=== PATIENT | female | born 1935 | race Caucasian/White ===

== ENCOUNTER 2022-09-29 06:32 | Day surgery (SDC) | payer MEDICARE, BC, SELFPAY ==
[2022-09-29] MEDS: BUPIVACAINE 0.5% 30 ML INJECTION (06:50)
[2022-09-29 06:55] VITALS: BP 145/71; PULSE 70; RESP 16; TEMP 36.4; O2SAT 95
[2022-09-29] MEDS: ETHYL CHLORIDE 1 APPLICATION 1 APPLIC TOPICAL (07:12)
[2022-09-29 07:30] VITALS: BP 151/67; PULSE 62; RESP 14; O2SAT 98
[2022-09-29 07:35] VITALS: BP 164/77; PULSE 61; RESP 14; O2SAT 98
--- NOTE | 2022-09-29 07:39 | P.ORPRC_ITS ---
Procedure Note Date of procedure: 09/29/22 Procedure: PREOPERATIVE DIAGNOSIS: 1. Left ring finger flexor tenosynovitis - trigger finger POSTOPERATIVE DIAGNOSIS: 1. Left ring finger flexor tenosynovitis - trigger finger PROCEDURE: 1. Left ring finger flexor tendon sheath open release (A1 justin) SURGEON: Johnie Kelley MD. TALENT ACQUISITION ADMINISTRATOR: Asa Rodríguez PA-C ANESTHESIA: Local anesthetic 4ml via 50:50 mixture of 1 Lidocaine with epi and 0.5% marcaine plain EBL: 2ml IMPLANTS: None TOURNIQUET: None COMPLICATIONS: None evident INDICATIONS: The patient is a pleasant 87-year-old female who has experienced left ring finger catching/triggering for number of months. It has progressively gotten worse. Given the failure of nonoperative management, and how this affects daily life, surgery was recommended. DESCRIPTION OF PROCEDURE: Following a thorough discussion of risks, benefits, and alternatives consent was obtained and the operative digit(s) was marked. The patient was brought to the operating room and placed supine on the operating table. Local anesthesia induction was undertaken in preop holding. No antibiotics were administered as this was planned to be a local case only. Proper time-out was performed identifying proper patient, site, and procedure. The operative extremity was prepped and draped in the appropriate sterile fashion using ChloraPrep. A incision was made on the palmar surface of the hand overlying the MCP joint region of the appropriate digit(s) respecting the palmar creases being cautious not to cross these perpendicularly. Sharp incision through the skin, and blunt dissection through subcutaneous tissue allowing protection of crossing neurologic structures. The A1 justin was visualized directly. It was incised sharply with a 15 blade. It was released completely from its distal to proximal extent under direct visualization. The tendon was inspected and found to be mildly striated consistent with some friction. Otherwise, it was intact. The tendon was removed out of the wound, and further inspected. The patient was asked to manually flex and extend the digits and showed no further catching. The catching which was visualized after tourniquet inflation, was no longer evident with reproduction of a manual fist and relaxation. Closure was performed with 4-O nylon in interrupted fashion. Soft dressings were applied, and the patient was transferred to the recovery room in stable condition. PLAN: 1. Encourage elevation of the operative extremity. 2. Range of motion and icing of the fingers and hand/wrist as tolerated/needed. 3. Ibuprofen/acetaminophen and/or Percocet as needed for pain control. 4. Follow up with PA visit in 12-16 days for wound check and suture removal.
[2022-09-29 07:41] VITALS: BP 151/72; PULSE 57; RESP 14; O2SAT 98
[2022-09-29] MEDS: NEOMYCIN/BACITRACIN/POLYMYXIN B 1 APPLIC TOPICAL (07:43)
[2022-09-29 07:50] VITALS: BP 160/64; PULSE 50; RESP 16; TEMP 36.3; O2SAT 98
== END 2022-09-29 08:25 | disposition home or self-care (01) ==
PROVIDERS: PCP Family Medicine; Visit Provider Orthopaedic Surgery Sports Medicine
PROC: (CPT 26055; principal; 2022-09-29 07:30)
DX: M65.342 Trigger finger, left ring finger (principal); M65.842 Other synovitis and tenosynovitis, left hand
CPT/HCPCS: 26055; J3490

== ENCOUNTER 2023-05-19 14:13 | Outpatient (RCR) | payer MEDICARE, BC, SELFPAY | END 2023-09-16 23:59 | disposition home or self-care (01) | PROVIDERS: PCP Family Medicine; Visit Provider Orthopaedic Surgery Sports Medicine | DX: M16.12 Unilateral primary osteoarthritis, left hip (principal); Z96.642 Presence of left artificial hip joint; Z51.89 Encounter for other specified aftercare | CPT/HCPCS: 97161 ==

== ENCOUNTER 2023-05-25 09:04 | Day surgery (SDC) | payer MEDICARE, BC, SELFPAY ==
[2023-05-25] VITALS (23 sets, daily range): BP systolic 104–146; BP diastolic 48–94; PULSE 48–102; RESP 15–18; TEMP 35.8–36.8; O2SAT 94–100; BMI 28.7
[2023-05-25] MEDS: CELECOXIB 200 MG CAPSULE PO ×2 (09:54→21:01)
[2023-05-25] MEDS: ACETAMINOPHEN 500 MG TABLET 1000 MG PO ×2 (09:54→18:21)
[2023-05-25] MEDS: LACTATED RINGERS 1000 ML 1,000 ML 100 ML IV ×2 (10:10→12:13)
[2023-05-25] MEDS: SODIUM CHLORIDE 0.9 % (FLUSH) 10 ML SYRINGE IVF (10:10)
--- NOTE | 2023-05-25 10:22 | CRLHL7_ITS ---
For Patients: As a result of the Cures Act, medical imaging exams and procedure reports are released immediately into your electronic medical record. You may view this report before your referring provider. If you have questions, please contact your health care provider. INDICATION: Follow up a new left hip arthroplasty. TECHNIQUE: AP portable view of the lower pelvis and cross table lateral view of the left hip. FINDINGS: Left hip arthroplasty. The components are adequately aligned and well seated. Air within the soft tissues and joint space related to the surgery. Older right hip arthroplasty. IMPRESSION: Postsurgical change from a left total hip arthroplasty. The components are adequately aligned and well seated. Dictated by Gerard Lira MD @ 05/25/2023 3:24:10 PM (Electronically Signed)
--- NOTE | 2023-05-25 10:48 | SUR.PREOP ---
TIME?OUT:?1101 PT/RN/MDA?VERIFICATION?OF?SURGICAL?SITE,?PROCEDURE,?AND?CONSENT OBTAINED?PRIOR?TO?INVASIVE?PROCEDURE.
[2023-05-25] MEDS: MIDAZOLAM HCL 1 MG/ML inj IVP (11:01)
[2023-05-25] MEDS: fentaNYL 100 MCG/2 ML inj IVP (11:01)
[2023-05-25] MEDS: CEFAZOLIN 2 GM in 0.9 % SODIUM CHLORIDE Mini-bag 100 ML IVPB (11:26)
[2023-05-25] MEDS: TRANEXAMIC ACID 100 MG/ML INJ 1000 MG IV (11:30)
--- NOTE | 2023-05-25 11:30 | CRLHL7_ITS ---
For Patients: As a result of the Century Cures Act, medical imaging exams and procedure reports are released immediately into your electronic medical record. You may view this report before your referring provider. If you have questions, please contact your health care provider. INDICATION: Left hip arthroplasty. Follow up. TECHNIQUE: Fluoroscopic guided intraoperative evaluation of the left hip. FINDINGS: 30.7 seconds fluoroscopy time utilized intraoperatively. A single spot image demonstrates a left hip arthroplasty. IMPRESSION: Left hip arthroplasty. 38.7 seconds fluoroscopy time utilized intraoperatively. Dictated by Gerard Lira MD @ 05/26/2023 8:32:24 AM (Electronically Signed)
--- NOTE | 2023-05-25 11:34 | W.PM.NB ---
Nerve Block Nerve Block Time Seen by Provider: 11:05 Date Seen: 05/25/23 Type of block requested by surgeon for post-operative analgesia: ALLIE/LFCN Side: left Time out performed: Yes Verification of patient name: Yes Verification of date of : Yes Site marking: site marked Name of person performing procedure: [place] Continuous monitoring Was continuous monitoring of O2 sat, B/P, quality assurance monitor body, recorded every 15 minutes?: Yes Procedure Checklist: sterile prep, needles and gloves Ultrasound guided. Images saved: Yes Medications given in 5ml increments after negative aspiration: Ropivicaine %: 0.5 mL: 30 Needle gauge: 20 Decadron (mg): 10 Precedex (mcg): 25 Patient tolerated procedure well: Yes Additional comments: Needle noted below psoas tendon needle noted adjacent to LFCN Block Charges Block Charge (with Pro Fee): Other Periph Nerve Block Use of Ultrasound Machine for Block: Yes- US Guidance/pain block
--- NOTE | 2023-05-25 11:35 | W.ANESCHARGE ---
Anesthesia Charges Start Date/Time Anesthesia Start Date: 05/25/23 Anesthesia Start Time: 11:16 Stop Date/Time Anesthesia Stop Date: 05/25/23 Anesthesia Stop Time: 14:41 Summary Extremes of Age - Over 70 or under 1: MDA
--- NOTE | 2023-05-25 13:46 | P.ORPRC_ITS ---
Procedure Note Date of procedure: 05/25/23 Procedure: PREOPERATIVE DIAGNOSIS: 1. Left hip osteoarthritis, severe, primary POSTOPERATIVE DIAGNOSIS: 1. Left hip osteoarthritis, severe, primary PROCEDURE: 1. Left total hip arthroplasty-anterior approach, cemented our femoral component a 2. [id number] - intraoperative fluoroscopy up to 1 hour. SURGEON: Johnie Kelley MD. ELEVATOR SERVICEMAN: Asa Mukherjee; KRIS Jack - Of note, a skilled assistant professor in family studies was critical for this case to aid in patient positioning, tissue retraction, limb manipulation/positioning, dislocation/relocation, patient safety, and closure. ANESTHESIA: Spinal anesthetic EBL: 300 mL IMPLANTS: DePuy J[employer]J uncemented total hip [place] cup size 50, hole eliminator, +0 neutral liner [place] cemented stem, standard offset, size 2 with the associated centralizer and small femoral canal restrictor; +5 mm ceramic 32mm head. Super cable (x1) for questionable calcar split COMPLICATIONS: Small calcar questionable split was seen intraoperatively when preparing the femur. Decision was made to place calcar cable to support this bone. INDICATIONS: The patient is a pleasant 88-year-old female who has experienced severe left hip pain and difficulty bearing weight. Workup included x-rays which revealed severe osteoarthrosis in the hip. Given the deformity, the dysfunction, and the pain, as well as the failure of nonoperative management, recommendation was made for surgery. FINDINGS: Full-thickness chondral loss throughout the femoral head broadly. Acetabulum also showed significant chondral loss. Moderate effusion upon entering the joint. DESCRIPTION OF PROCEDURE: Following a thorough discussion of risks, benefits, and alternatives consent was obtained and the left hip was marked. The patient was brought to the operating room and placed supine on the operating table. Induction of anesthesia was undertaken. 1 g IV Ancef and 1 g tranexamic acid was administered within 1 hr of incision preoperatively. Proper time-out was performed identifying proper patient, site, procedure. The operative extremity was prepped and draped in the appropriate sterile fashion using ChloraPrep after the patient was positioned on the [place] table with head in neutral alignment and all bony prominences well padded. C-arm fluoroscopic imaging was utilized to confirm proper pelvis rotation and position, and to get true AP films of both the contralateral left, and the affected left hip. This is for comparison. A longitudinal incision was made starting approximately 1 cm distal to the ASIS, and 3-4 cm lateral. The incision was extended distally aiming toward the lateral border the patella. Sharp incision through skin and bovie cautery through the subcutaneous tissue allowed identification of the TFL fascia. This was sharply divided, and the fascia bluntly released from the muscle fibers as we dissected medial. Upon coming to the medial border, we were able to retract the TFL laterally, and penetrated the deeper fascia and identify the crossing circumflex vessels. These were ligated/cauterized. The rectus was elevated from the capsule, and retractors placed laterally and medially along the femoral neck to help with visualization of the capsule. We then performed an inverted T capsulotomy. The capsule was tagged for later repair. Retractors were placed inside the capsule. The femoral neck was visualized after releasing medially down to the lesser trochanter, along the saddle laterally, and up onto the acetabulum. The femoral neck cut was made in line with our preoperative templating. The head was removed in a single piece, and sized. We turned our attention to acetabular preparation. Initially, the labrum was resected from around the perimeter, the pulvinar was excised, allowing us to visualize the false wall. We started the reaming with a 43 mm reamer. This was medialized down to the true wall. We then enlarged our reamers sequentially up to one size less than the selected cup size. We trialed at the same size and found it to have an excellent fit. The selected cup was then opened, inserted, and impacted in line with the goal of 40-45? of abduction, and 20-25? of anteversion. This was confirmed on C-arm fluoroscopic imaging to be in the monserrat ropriate/goal position. Once the cup was placed we placed a hole eliminator and a liner consistent with preop planning. Attention was turned to the femoral preparation. The limb was extended, externa lly rotated, and adducted. The posteromedial capsule was released, as retractors were placed allowing excellent access to the proximal femur. Initially a music box mechanic was followed by canal finder followed by various broaches. We broached sequentially up to size noted above, found it to have excellent rotational control, and trialing various heads and necks, revealed that appropriate neck offset, and the above noted head size provided the greatest stability, and yarsani of length, and offset. C-arm fluoroscopic imaging confirmed position of the stem, as well as leg lengths, which were comp ared with the pre procedure all fluoroscopic images. Of note, during femoral preparation a small possible, questionable calcar split was visualized. So as not to have this turned to something that might propagate, a decision made to place a super cable around the calcar. This was passed, cables passed through the mechanism and engaged. This was tensioned to the high level and secured. Thereafter, excellent control on the femur was maintained. The femur was prepared for cementing and cement mixed on back table. After thorough irrigation, including of the femoral canal, cement was filled, pressurized, and the stem placed until cement had completely cured. After 1 last trial to confirm leg lengths and offset, the real head was opened and inserted. After reducing, the leg was placed through range of motion and stability was confirmed anterior, posterior, and lateral. A 3 min Betadine soak was then performed, and thorough irrigation with normal saline followed. Closure of the capsule was performed with #1 PDS. Bleeding was confirmed to be controlled at this stage, and the TFL fascia was closed with #0 strata fix. Subcutaneous, and subcuticular closure was performed with 2-0 Vicryl and 4-0 Monocryl, respectively. Dressings were applied, and the patient was awoken from anesthesia and transferred the PACU in stable condition. A skilled assistant professor in family studies was critical for this case to aid in patient positioning, tissue retraction, proximal femur exposure, limb manipulation/positioning, dislocation/relocation, patient safety, and closure. PLAN: 1. Weight bear as tolerated operative extremity. 2. 23 hr perioperative antibiotics. 3. Ice. 4. PT/OT consults for ambulation assistance/mobility education. 5. Social work consult for discharge planning. 6. DVT prophylaxis with at SCDs, Wallace Jorgee, and Xarelto x5 days followed by aspirin for a total of 1 month..
--- NOTE | 2023-05-25 14:45 | P.ANES_ITS ---
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
[2023-05-25] MEDS: LACTATED RINGERS 1000 ML 1,000 ML 75 ML IV (15:47)
[2023-05-25] MEDS: CEFAZOLIN 1 GM in 0.9 % SODIUM CHLORIDE Mini-bag 100 ML IVPB (18:22)
--- NOTE | 2023-05-25 18:35 | P.IMCN_ITS ---
Date of Consult Patient: Other Consult date: 05/25/23 Requesting Physician: Orthopedics Primary Care Provider: Severino Durham MD Consult Narrative Reason for consult: Assist with postop medical management Narrative: Clarissa Dey is a 88 year old woman with symptomatic severe left Coxarthrosis, who undergoes elective left total hip arthroplasty today, without any co mplications. Estimated blood loss 300 mL. History of right total hip arthroplasty, right total knee arthroplasty, left total knee arthroplasty. Did well with these. Review of Systems Status of ROS: Reports: 10 or more systems reviewed and unremarkable except as noted in History and below [facility] Medical History Spondyloarthropathy ?M47.819 - Spondylosis without myelopathy or radiculopathy, site unspecified (ICD-10) Insomnia ?G47.00 - Insomnia, unspecified (ICD-10) Bilateral artificial lens implant ?Z96.1 - Presence of intraocular lens (ICD-10) Congestive heart failure ?I50.9 - Heart failure, unspecified (ICD-10) Osteoporosis ?M81.0 - Age-related osteoporosis without current pathological fracture (ICD- 10) Surgical History (Updated 05/25/23 @ 18:35 by Hank Gloria MD) S/P trigger finger release (09/29/22) ?Z98.890 - Other specified postprocedural states (ICD-10) 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) ?Z96.651 - Presence of right artificial knee joint (ICD-10) History of total left 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) ?Z96.652 - Presence of left artificial knee joint (ICD-10) History of total right hip replacement ?Z96.641 - Presence of right artificial hip joint (ICD-10) Family History (Updated 05/25/23 @ 18:32 by Hank Gloria MD) Mother Liver cancer Colon cancer Father Colon cancer CHF (congestive heart failure) Social History Smoking Status: Never smoker Do you use any of these nicotine containing products: None Second hand tobacco smoke exposure: No How often do you have a drink containing alcohol: 4 or more times a week Alcohol type: wine How many standard drinks containing alcohol do you have on a typical day: 1 or 2 How often do you have six or more drinks on one occasion: Never AUDIT-C Alcohol total score: 4 Non-prescribed substance use: denies use Caffeine: No Meds Home Medications and Allergies Home Medications Medication Instructions Recorded Confirmed Type trazodone 50 mg tablet 50 mg PO HS 09/24/22 05/25/23 History vitamin C 90 mg-zinc gluconate 15 1 latisha PO DAILY 09/24/22 05/25/23 History mg-herbal complex no. 325 lozenges (Elderberry Zinc Vit C) acetaminophen 650 mg 650 mg PO Q8H 04/14/23 05/25/23 History tablet,extended release coenzyme Q10 100 mg capsule (Co 100 mg PO QDAY 04/14/23 05/25/23 History Q-10) [id number] C-Mn 2 cap PO QDAY 04/14/23 05/25/23 History capsule Allergies Allergy/AdvReac Type Severity Reaction Status Date / Time bee venom protein (honey bee) Allergy Verified 05/25/23 09:40 Carbapenems Allergy Verified 05/25/23 09:40 Cephalosporins Allergy Verified 05/25/23 09:40 Penicillins Allergy Verified 05/25/23 09:40 prilocaine Allergy Verified 05/25/23 09:40 procaine Allergy Verified 05/25/23 09:40 Sulfa (Sulfonamide Allergy Verified 05/25/23 09:40 Antibiotics) vitamin E (d-alpha Allergy Verified 05/25/23 09:40 tocopherol) Exam Narrative: Exam Narrative: Examined patient in her bed on the medical surgical floor postoperatively. She appears comfortable in no acute distress. Vision and hearing are grossly normal. Alert and oriented to self, place, time, situation. Friendly, articulate, cooperative. Mood and affect are congruent. Neck is supple. No JVD or hepatojugular reflux. Heart tones with regular rhythm. Occasional pause noted. Soft systolic murmur. No gallop or rub. Lungs are clear to auscultation. Fine end inspiratory rales bibasilarly. No wheezing or rhonchi. Abdomen with active bowel sounds, soft, nontender. Moves all 4 extremities. No focal motor neurologic deficits. No lower extremity edema. Const: Vital Signs, click to edit/add: Vital Signs - 24 hr 05/25/23 09:52 05/25/23 11:02 05/25/23 11:05 Temperature 98.1 F Pulse Rate 68 56 L 63 Pulse Rate [Left P ulse Oximeter] Respiratory Rate 16 16 16 Blood Pressure 122/74 144/52 H 146/58 H Blood Pressure [Le ft Arm] Pulse Oximetry 98 99 99 Oxygen Delivery Me thod 05/25/23 14:37 05/25/23 14:40 05/25/23 14:45 Temperature 97.4 F L Pulse Rate 71 68 67 Pulse Rate [Left P ulse Oximeter] Respiratory Rate 15 16 16 Blood Pressure 118/60 116/72 115/91 H Blood Pressure [Le ft Arm] Pulse Oximetry 95 95 95 Oxygen Delivery Me od Room Air 05/25/23 14:50 05/25/23 14:55 05/25/23 15:00 Temperature Pulse Rate 69 69 61 Pulse Rate [Left P ulse Oximeter] Respiratory Rate 18 16 16 Blood Pressure 132/59 L 139/62 118/94 H Blood Pressure [Le ft Arm] Pulse Oximetry 95 98 [facility] 05/25/23 15:05 05/25/23 15:10 05/25/23 15:20 Temperature 97 F L 96.4 F L Pulse Rate 58 L 55 L 51 L Pulse Rate [Left P ulse Oximeter] Respiratory Rate 18 18 18 Blood Pressure 136/75 136/58 L Blood Pressure [Le ft Arm] 139/68 Pulse Oximetry 98 97 Oxygen Delivery [facility] Room Air Room Air 05/25/23 15:20 05/25/23 15:35 05/25/23 15:50 Temperature 96.4 F L 96.5 F L 97.6 F Pulse Rate 51 L Pulse Rate [Left P ulse Oximeter] 54 L 50 L Respiratory Rate 18 16 16 Blood Pressure Blood Pressure [Le ft Arm] 139/68 121/68 127/67 Pulse Oximetry 98 [facility] Room Air Room Air 05/25/23 16:05 05/25/23 16:20 05/25/23 16:50 Temperature 98.2 F 98.2 F 97.0 F L Pulse Rate Pulse Rate [Left P ulse Oximeter] 48 L 50 L 52 L Respiratory Rate 16 16 16 Blood Pressure Blood Pressure [Le ft Arm] 132/59 L 110/57 L 116/49 L Pulse Oximetry Oxygen Delivery Me thod Room Air Room Air Room Air Documenting provider has reviewed patient's vital signs: yes Assessment and Plan Assessment and plan (1) Osteoarthritis of left hip: Problem comment: Severe, [id number] Status: Acute (2) Status post left hip replacement: Status: Acute Plan 1. Reviewed impression with patient. 2. Answered her questions. 3. Continue with trazodone at bedtime. 4. Agree with perioperative antibiotic prophylaxis. 5. Agree with postoperative venous thromboembolism prophylaxis. 6. I have completed the medical discharge for this patient. Medically she may be discharged when Orthopedic surgery deems her ready to be discharged. 7. Will be available to assist Orthopedic surgery while patient is in the hospital. 8. Patient agreeable with above stated plans and recommendations.
--- NOTE | 2023-05-25 19:23 | PC.NURSE ---
VS on RA, A& Ox3. Left Hip dressing CDI w/ no drainage, ice to op site. TEDs and plexipulses on BLE. Encouraged to cough and use incentive spirometer. Educated on proper movement to get out of bed. A x1 w/ gait belt and RW 1x to the BR no void yet. Minimal reports of 2/10 pain while in bed, more pain with activity. Pt is hesitant to take oxy because she is worried about constipation, I educated on priority to stay on top of pain and how senna/miralax will help prevent constipation. Tolerating PO liquids and food w/ no reports of nausea. Scheduled tylenol and abx given.
[2023-05-26] MEDS: ACETAMINOPHEN 500 MG TABLET 1000 MG PO ×2 (00:18→05:56)
[2023-05-26] MEDS: CEFAZOLIN 1 GM in 0.9 % SODIUM CHLORIDE Mini-bag 100 ML IVPB (02:32)
[2023-05-26 03:07] VITALS: BP 107/50; RESP 16; TEMP 36.9; O2SAT 98
--- NOTE | 2023-05-26 07:23 | PC.NURSE ---
[id number]: Patient had an uneventful night. Patient pain controlled with scheduled tyl. Patient SBA with ambulation, gait belt and walker. Patient SL. Patient denies n/v. Patient AAOx4. Patient req oxygen prn during night. Patient able to verbalize needs.
[2023-05-26 07:44] LABS: Basophils Percent Auto 0.1 % (0.0-3.0); Hematocrit 29.4 % (33.0-51.0); Hemoglobin* 9.8 gm/dL (12.0-16.0); Immature Granulocytes Pct Auto 0.2 %; Lymphocytes Percent Auto 10.9 % (20-44); Mean Corpuscular HGB Conc 33 gm/dL (32-36); Mean Corpuscular Hemoglobin 31 pg (26-34); Mean Corpuscular Volume 94 fL (80-100); Neutrophils Percent Auto 82.8 % (42.0-72.0); Platelet Count* 240 K/uL (140-440); Red Blood Count 3.13 m/uL (4.00-5.20); White Blood Count* 12.13 K/uL (4.50-11.00)
[2023-05-26 07:51] LABS: Slide Review Reflex No
[2023-05-26 07:59] LABS: Sodium* 135 mmol/L (135-149)
--- NOTE | 2023-05-26 08:01 | PM.ORPN ---
Subjective Subjective Date Seen: 05/26/23 Principal diagnosis: Status postop day 1, left total hip arthroplasty - anterior approach Interval history: Patient reports doing well. No acute events over night. Reports that she continues to work on deep breathing to keep the alarm on the vital machine from going off. Pain managed with scheduled and PRN medications, ice. DVT prophylaxis: Rivaroxaban, bilateral knee high Wallace stockings, SCDs, walking. Denies fevers, chills, aches, N/V, CP, SOB/SIERRA, or lightheadedness. Ortho Exam Narrative Exam Narrative: -Patient appears comfortable in bed, eating breakfast; no apparent acute distress -Alert and oriented times 3 -Operative hip swollen; soft tissues supple; no obvious erythema. Ecchymosis minimal. Warmth appropriate. Tender to touch left lateral thigh -Surgical dressing clean, dry, intact; no obvious drainage, no erythematous streaking peripheral to the bandage -Bilateral calves soft and supple; no significant swelling, edema, tenderness, erythema, discoloration, warmth, or palpable cords -2+ DP/PT pulses, intact dermatomes and myotomes distally (5/5 strength). No numbness about the lateral femoral cutaneous nerve distribution. Const Vital Signs, click to edit/add: Vital Signs - 24 hr 05/25/23 09:52 05/25/23 11:02 05/25/23 11:05 Temperature 98.1 F Pulse Rate 68 56 L 63 Pulse Rate [Left Pulse Oximeter] Respiratory Rate 16 16 16 Blood Pressure 122/74 144/52 H 146/58 H Blood Pressure [Left Arm] Pulse Oximetry 98 99 99 Oxygen Delivery Method Oxygen Flow Rate 05/25/23 14:37 05/25/23 14:40 05/25/23 14:45 Temperature 97.4 F L Pulse Rate 71 68 67 Pulse Rate [Left Pulse Oximeter] Respiratory Rate 15 16 16 Blood Pressure 118/60 116/72 115/91 H Blood Pressure [Left Arm] Pulse Oximetry 95 95 95 Oxygen Delivery Method Room Air Oxygen Flow Rate 05/25/23 14:50 05/25/23 14:55 05/25/23 15:00 Temperature Pulse Rate 69 69 61 Pulse Rate [Left Pulse Oximeter] Respiratory Rate 18 16 16 Blood Pressure 132/59 L 139/62 118/94 H Blood Pressure [Left Arm] Pulse Oximetry 95 98 100 Oxygen Delivery Method Room Air Oxygen Flow Rate 05/25/23 15:05 05/25/23 15:10 05/25/23 15:20 Temperature 97 F L 96.4 F L Pulse Rate 58 L 55 L 51 L Pulse Rate [Left Pulse Oximeter] Respiratory Rate 18 18 18 Blood Pressure 136/75 136/58 L Blood Pressure [Left Arm] 139/68 Pulse Oximetry 98 97 Oxygen Delivery Method Room Air Room Air Oxygen Flow Rate 05/25/23 15:20 05/25/23 15:35 05/25/23 15:50 Temperature 96.4 F L 96.5 F L 97.6 F Pulse Rate 51 L Pulse Rate [Left Pulse Oximeter] 54 L 50 L Respiratory Rate 18 16 16 Blood Pressure Blood Pressure [Left Arm] 139/68 121/68 127/67 Pulse Oximetry 98 Oxygen Delivery Method Room Air Room Air Room Air Oxygen Flow Rate 05/25/23 16:05 05/25/23 16:20 05/25/23 16:50 Temperature 98.2 F 98.2 F 97.0 F L Pulse Rate Pulse Rate [Left Pulse Oximeter] 48 L 50 L 52 L Respiratory Rate 16 16 16 Blood Pressure Blood Pressure [Left Arm] 132/59 L 110/57 L 116/49 L Pulse Oximetry Oxygen Delivery Method Room Air Room Air Room Air Oxygen Flow Rate 05/25/23 17:20 05/25/23 18:20 05/25/23 19:20 Temperature 97.2 F L 97.3 F L 98.1 F Pulse Rate Pulse Rate [Left Pulse Oximeter] 94 102 H 81 Respiratory Rate 16 16 16 Blood Pressure Blood Pressure [Left Arm] 113/51 L 104/55 L 130/52 L Pulse Oximetry 94 94 Oxygen Delivery Method Room Air Room Air Room Air Oxygen Flow Rate 05/25/23 20:20 05/25/23 21:20 05/25/23 23:46 Temperature 98.2 F 98.2 F 97.3 F L Pulse Rate Pulse Rate [Left Pulse Oximeter] 81 65 Respiratory Rate 16 16 16 Blood Pressure Blood Pressure [Left Arm] 115/50 L 106/48 L 111/57 L Pulse Oximetry 94 98 98 Oxygen Delivery Method Room Air Nasal Cannula Nasal Cannula Oxygen Flow Rate 2 2 05/26/23 03:07 Temperature 98.4 F Pulse Rate Pulse Rate [Left Pulse Oximeter] Respiratory Rate 16 Blood Pressure Blood Pressure [Left Arm] 107/50 L Pulse Oximetry 98 Oxygen Delivery Method Room Air Oxygen Flow Rate 0 Assessment and Plan Assessment and plan (1) Osteoarthritis of left hip: Problem details: Severe, [id number] Status: Acute (2) Status post left hip replacement: Problem details: POD 1 left total hip arthroplasty - anterior approach Status: Acute Plan - Complete 23 hour perioperative antibiotics. - PT/OT consult for education and assistance. - Social work consult for discharge planning - Prescribed analgesics as needed - DVT prophylaxis: Rivaroxaban, bilateral knee high Wallace Hose stockings and SCDs - Anticipation is for discharge to home with son and daughter today, 05/26/2023, if the patient remains medically stable, pain is controlled, and they are safe with mobilization. Patient's daughter daughter will be staying with her for a few days.
[2023-05-26 08:02] LABS: Blood Urea Nitrogen* 20 mg/dL (7-30); Creatinine* 0.6 mg/dL (0.5-1.5); Est. Creatinine Clearance* 29.01; Estimated Glomerular Filt Rate 87 ml/min
[2023-05-26 08:08] VITALS: BP 134/91; PULSE 52; RESP 16; TEMP 36.8; O2SAT 98
[2023-05-26] MEDS: SENNOSIDES 1 TAB TABLET 2 TAB PO (08:33)
[2023-05-26] MEDS: CELECOXIB 200 MG CAPSULE PO (08:34)
[2023-05-26] MEDS: RIVAROXABAN 10 MG TABLET PO (08:34)
--- NOTE | 2023-05-26 15:52 | PC.SOCIAL ---
per therapy, pt is moving well. Pt will have assistance at home with pt's spouse. No identified social work needs.
== END 2023-05-26 11:35 | disposition home or self-care (01) ==
LOC: OR 09:05 → MEDSURG 09:11
PROVIDERS: PCP Family Medicine; Visit Provider Orthopaedic Surgery Sports Medicine
PROC: (CPT 27130; principal; 2023-05-25 11:30)
DX: M16.12 Unilateral primary osteoarthritis, left hip (principal); G89.18 Other acute postprocedural pain
CPT/HCPCS: 27130; 01214; 36415; 64450; 73501; 76942; 82565; 84132; 84295; 84520; 85025; 86850; 86900; 86901; 97110; 97116; 97161; 97165; 99100; A9270; C1776; J0690; J1100; J2250; J2371; J2405; J2704; J2795; J3010; J7120

== ENCOUNTER 2024-02-13 08:29 | Day surgery (SDC) | payer MEDICARE, BC, SELFPAY ==
[2024-02-13] VITALS (8 sets, daily range): BP systolic 120–147; BP diastolic 60–79; PULSE 65–73; RESP 16; TEMP 36.6–36.8; O2SAT 95–99; BMI 28.3
[2024-02-13] MEDS: BUPIVACAINE 0.5% 30 ML INJECTION (08:50)
--- NOTE | 2024-02-13 09:38 | SUR.PREOP ---
SAME DAY SURGERY LOCAL INJECTION SITE VERIFICATION WAS PERFORMED BY SURGEON/PA AND PATIENT PRIOR TO LOCAL ANESTHETIC BEING INJECTED TO OPERATIVE SITE.
[2024-02-13] MEDS: ETHYL CHLORIDE 1 APPLICATION 1 APPLIC TOPICAL (09:39)
--- NOTE | 2024-02-13 10:29 | P.ORPRC_ITS ---
Procedure Note Date of procedure: 02/13/24 Procedure: PREOPERATIVE DIAGNOSIS: 1. Right index and ring fingers flexor tenosynovitis - trigger finger POSTOPERATIVE DIAGNOSIS: 1. Right index and ring finger flexor tenosynovitis - trigger finger PROCEDURE: 1. Right index and ring finger flexor tendon sheath open release (A1 justin) SURGEON: Johnie Kelley MD. RN DERMATOLOGY: Asa Rodríguez PA-C ANESTHESIA: Local anesthetic 6ml total divided between the 2 digits even the via 50:50 mixture of 2 % Lidocaine with epi and 0.5% marcaine plain EBL: 2mL IMPLANTS: None TOURNIQUET: None COMPLICATIONS: None evident INDICATIONS: The patient is a pleasant 88-year-old female who has experienced right index and ring finger catching/triggering for number of months. It has progressively gotten worse. Given the failure of nonoperative management, and how this affects daily life, surgery was recommended. DESCRIPTION OF PROCEDURE: Following a thorough discussion of risks, benefits, and alternatives consent was obtained and the operative digit(s) was marked. The patient was brought to the operating room and placed supine on the operating table. Local anesthesia induction was undertaken in preop holding. No antibiotics were administered as this was planned to be a local case only. Proper time-out was performed identifying proper patient, site, and procedure. The operative extremity was prepped and draped in the appropriate sterile fas hion using ChloraPrep. An incision was made on the palmar surface of the hand overlying the MCP joint region of the appropriate digit(s) respecting the palmar creases being cautious not to cross these perpendicularly. Sharp incision through the skin, and blunt dissection through subcutaneous tissue allowing protection of crossing neurologic structures. The A1 justin was visualized directly. It was incised sharply with a 15 blade. It was released completely from its distal to proximal extent under direct visualization. The tendon was inspected and found to be mildly striated consistent with some friction. Otherwise, it was intact. The tendon was removed out of the wound, and further inspected. The patient was asked to manually flex and extend the digits and showed no further catching. The catching, which was visualized initially, was no longer evident with reproduction of a manual fist and relaxation. Closure was performed with 4-O nylon in interrupted fashion. Soft dressings were applied, and the patient was transferred to the recovery room in stable condition. PLAN: 1. Encourage elevation of the operative extremity. 2. Range of motion of the fingers and hand/wrist as tolerated. 3. Ibuprofen/acetaminophen and/or oxycodone as needed for pain control. 4. Follow up with PA visit in 12-16 days for wound check and suture removal.
== END 2024-02-13 11:11 | disposition home or self-care (01) ==
PROVIDERS: PCP Family Medicine; Visit Provider Orthopaedic Surgery Sports Medicine
PROC: (CPT 26055; principal; 2024-02-13 09:00)
DX: M65.321 Trigger finger, right index finger (principal); M65.341 Trigger finger, right ring finger; M65.841 Other synovitis and tenosynovitis, right hand
CPT/HCPCS: 26055 ×2; J0665

== ENCOUNTER 2024-08-20 13:01 | Outpatient (CLI) | payer MEDICARE, BC, SELFPAY | END 2024-08-20 13:02 | disposition home or self-care (01) | LOC: AMB 08-25 07:52 | PROVIDERS: PCP Family Medicine; Visit Provider Family Medicine | DX: M79.605 Pain in left leg (principal) | CPT/HCPCS: A0425; A0427 ==

== ENCOUNTER 2024-08-20 13:52 | Emergency (ER) | payer MEDICARE, BC, SELFPAY ==
[2024-08-20 13:53] VITALS: BP 128/110; PULSE 65; RESP 18; TEMP 36.6; O2SAT 98; BMI 27.7
--- NOTE | 2024-08-20 14:23 | ED.LOWEXIN ---
HPI - Extremity Injury (Lower) General Time Seen by Provider: 14:23 Date Seen: 08/20/24 Chief Complaint: Extremity Pain/Injury, Lower Stated Complaint: Leg pain Time Seen by Provider: 08/20/24 14:13 Source: patient, RN notes reviewed and old records reviewed Mode of arrival: ambulatory Limitations: no limitations History of Present Illness HPI Narrative: Mrs. Dey is a very pleasant 89-year-old well-spoken woman who presents via [facility] for evaluation regarding left leg pain and difficulty with weight-bearing. Patient awoke this morning with pain from her knee cap into her left hip anterior groin. It was so bad that she had a hard time getting out of bed but she it ventrally did that. She notes that she uses walking sticks and try to do that and tried to ?walk it off?. This did not help. She also took her left leg and brought it close to her chest in extreme hip flexion thinking that maybe something was caught or needed to be stretched. These movements did not increase her pain but certainly did not relieve her pain. She notes that she has chronic numbness in her anterior thigh from her hip replacement. Patient notes that she has a history of a left hip replacement and during that time it had been noted that she had a femur fracture and thus a band was placed around her femur. She notes that this cause significant discomfort and sensitized the nerves. This caused persistent pain and electrical shock-like feeling throughout her leg. She notes that she underwent therapy at [facility] in [place] and this significantly helped although the numbness persists. Patient states the pain that she is experiencing today is completely different from what high have just described. She notes no recent falls or trauma. She notes that she had recently been in [place] on a car trip. She tried to get in to see her physical therapist in [place] but there were no appointments available here. She arrives by EMS. Patient denies fever chills vomiting nausea abdominal pain loss of bowel or bladder control. She does note that when she was feeling her leg she seemed to have increasing firmness on the inner aspect of her left lower calf. Related Data Home Medications ?Medication ?Instructions ?Recorded ?Confirmed trazodone 50 mg tablet 50 mg PO HS 09/24/22 08/20/24 Allergies Allergy/AdvReac Type Severity Reaction Status Date / Time bee venom protein (honey bee) Allergy Verified 08/20/24 17:33 Carbapenems Allergy Verified 08/20/24 17:33 Cephalosporins Allergy Verified 08/20/24 17:33 Penicillins Allergy Verified 08/20/24 17:33 prilocaine Allergy Verified 08/20/24 17:33 procaine Allergy Verified 08/20/24 17:33 Sulfa (Sulfonamide Allergy Verified 08/20/24 17:33 Antibiotics) vitamin E (d-alpha Allergy Verified 08/20/24 17:33 tocopherol) Review of Systems Status of ROS: Reports: 10 or more systems reviewed and unremarkable except as noted in History and below Narrative: Pain increases in the left hip with coughing. Const: Denies: fever or chills Eyes: Denies: change in vision ENMT: Denies: throat pain, neck pain, nasal discharge or nasal congestion Cardio: Denies: chest pain, palpitations, swelling of feet/ankles, lightheadedness or shortness of breath with exertion Resp: Reports: cough (Occasional); Denies: shortness of breath GI: Denies: abdominal pain, nausea or vomiting : Denies: painful urination Musculo: Denies: neck pain PFSH PFSH Medical History Spondyloarthropathy ?M47.819 - Spondylosis without myelopathy or radiculopathy, site unspecified (ICD-10) Insomnia ?G47.00 - Insomnia, unspecified (ICD-10) Bilateral artificial lens implant ?Z96.1 - Presence of intraocular lens (ICD-10) Congestive heart failure ?I50.9 - Heart failure, unspecified (ICD-10) Osteoporosis ?M81.0 - Age-related osteoporosis without current pathological fracture (ICD-10) Surgical History (Updated 02/27/24 @ 11:36 by Chelsey Ponce ~ [employer], [employer] [facility]) Status post left hip replacement (05/25/23) ?Z96.642 - Presence of left artificial hip joint (ICD-10) S/P trigger finger release (09/29/22) ?Z98.890 - Other specified postprocedural states (ICD-10) 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) ?Z96.651 - Presence of right artificial knee joint (ICD-10) History of total left 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) ?Z96.652 - Presence of left artificial knee joint (ICD-10) History of total right hip replacement ?Z96.641 - Presence of right artificial hip joint (ICD-10) Family History (Updated 05/25/23 @ 18:32 by Hank Gloria MD) Mother Liver cancer Colon cancer Father Colon cancer CHF (congestive heart failure) Social History (Reviewed 06/16/23 @ 13:00 by Merry Arce ~ [facility]) Smoking Status: Never smoker Do you use any of these nicotine containing products: None Second hand tobacco smoke exposure: No How often do you have a drink containing alcohol: 4 or more times a week Alcohol type: wine How many standard drinks containing alcohol do you have on a typical day: 1 or 2 How often do you have six or more drinks on one occasion: Never AUDIT-C Alcohol total score: 4 Non-prescribed substance use: denies use Caffeine: No Exam Narrative: Exam Narrative: Clarissa is alert and oriented. She is for very precise in detailed in her explanations. She is with a GCS of 15 and mentating normally. External ears eyes nose clear. Heart with regular rate and rhythm and lungs are clear. Abdomen is soft there is no tenderness noted. No pulsating masses noted I do not note any unusual hernias or bulging. Examination of her lower extremity show no evidence of lesions or rash. She has no palpable tenderness along the anterior lateral or medial thigh. She demonstrates full hip flexion without difficulty. Distally sensation and motor is intact. No erythema of the lower extremities or calf tenderness with palpation. Const: Vital Signs, click to edit/add: Vital Signs - 24 hr 08/20/24 13:53 08/20/24 15:49 08/20/24 16:46 Temperature 97.9 F 97.9 F Pulse Rate [Pulse Oximeter] 65 57 L 55 L Respiratory Rate 18 16 16 Blood Pressure [Le ft Upper Arm] 128/110 H 148/72 H Pulse Oximetry 98 98 97 Oxygen Delivery Me thod Room Air Room Air Room Air Documenting provider has reviewed patient's vital signs: yes Course Course ED Course: Differential diagnosis includes but is not limited to radiculopathy, shingles, occult pelvic fracture, internal hernia or aneurysm, DVT. At this time will start with ultrasound of the left lower extremity as well as x-rays of the pelvis left hip left femur and left knee. Patient declines any blood work at this time. Reevaluation(s) Reevaluation #1: X-rays and ultrasound reassuring. I spoke with Clarissa about other etiologies which are very unlikely but possible as I am not able to explain this pain. I am suggesting an abdominal and pelvic CT with contrast to ensure that there is no evidence of aneurysm or hernia that could possibly be causing this leg pain. She is receptive to this. Will also check a CBC, comprehensive panel, CRP. Urinalysis. Reevaluation #2: Did speak to patient about her use of Tylenol in taking 3 extra-strength tablets at 1 time which is exceeds the recommended single dose of 1000 mg. Reevaluation #3: Abdominal CT without any Bryan some findings to explain leg pain. Vital Signs Vital signs: Initial Vital Signs Temperature 97.9 F 08/20/24 13:53 Temperature Source Temporal Artery Scan 08/20/24 13:53 Pulse Rate 65 08/20/24 13:53 Respiratory Rate 18 08/20/24 13:53 Blood Pressure 128/110 H 08/20/24 13:53 Blood Pressure Mean 116 H 08/20/24 13:53 Blood Pressure Position Supine 08/20/24 13:53 Pulse Oximetry 98 08/20/24 13:53 Oxygen Delivery Method Room Air 08/20/24 13:53 Vital Signs Temperature 97.9 F 08/20/24 13:53 Pulse Rate 65 08/20/24 13:53 Respiratory Rate 18 08/20/24 13:53 Blood Pressure 128/110 H 08/20/24 13:53 Pulse Oximetry 98 08/20/24 13:53 Oxygen Delivery Method Room Air 08/20/24 13:53 Temperature 97.9 F 08/20/24 16:46 Pulse Rate 55 L 08/20/24 18:45 Respiratory Rate 16 08/20/24 18:45 Blood Pressure 140/82 H 08/20/24 18:45 Pulse Oximetry 97 08/20/24 18:45 Oxygen Delivery Method Room Air 08/20/24 18:45 MDM - Extremity Injury (Lower) MDM Narrative Medical decision making narrative: 1. Left leg pain -unknown etiology. There is some slight narrowing at L2 but this does not appear to be radicular as it is encompassing the entire left quad. Paper ill patient is able to straighten and extend at the knee. X-rays reassuring as was abdominal CT with no underlying evidence of a hernia or aneurysm. At this time patient wants to go home and feel she is safe to do so. She tells me that she has lots of people at her place of living that look after her. Plan is to have her follow-up with her physical therapists tomorrow. If she has ongoing issues suggest orthopedic consult. Laboratory values reassuring no evidence of UTI but will send for urine culture. CRP within normal limits and no evidence of leukocytosis. Did specifically discuss possible appearance of shingles and she would need to seek medical attention if this occurred. She assures me she recently had her shingles vaccination 2. History of left hip repair -repair appears to be without any changes. 3. Disposition -home at this time. Patient feels safe going home. Recommend she keep her appointment with physical therapy but if she is worsening have her return to the emergency room. She is in agreement with this plan. Medical Records Attestation: I reviewed the patient's medical records. Lab Data Attestation: I reviewed the patient's lab results. Labs: Lab Results 08/20/24 08/20/24 Range/Units 16:30 16:40 WBC 8.52 (4.50-11.00) K/uL RBC 4.04 (4.00-5.20) m/uL Hgb 12.2 (12.0-16.0) gm/dL Hct 37.1 (33.0-51.0) % MCV 92 (80-100) fL MCH 30 (26-34) pg MCHC 33 (32-36) gm/dL RDW Coeff of Jaspreet 12.8 (11.5-15.5) % Plt Count 300 (140-440) K/uL Neut % (Auto) 60.3 (42.0-72.0) % Lymph % (Auto) 31.0 (20-44) % [place] % (Auto) 7.2 (0.0-11.0) % Eos % (Auto) 0.9 (0.0-7.0) % Baso % (Auto) 0.5 (0.0-3.0) % Neut # (Auto) 5.14 (1.7-7.0) K/uL Lymph # (Auto) 2.64 (0.90-2.90) K/uL [place] # (Auto) 0.60 (0.00-0.90) K/UL Eos # (Auto) 0.08 (0.00-0.50) K/uL Baso # (Auto) 0.04 (0.00-0.30) K/uL Abs Immat Gran (auto) 0.01 (0.00-0.30) K/uL Imm/Tot Granulo (auto) 0.1 % Sodium 137 (135-149) mmol/L Potassium 3.9 (3.6-5.1) mmol/L Chloride 103 (96-114) mmol/L Carbon Dioxide 28 (20-32) mmol/L Anion Gap 6 L (7-15) mEq/L BUN 19 (7-30) mg/dL Creatinine 0.6 (0.5-1.5) mg/dL Estimated Creat Clear 29.91 Estimated GFR 87 ml/min Glucose 89 (60-115) mg/dL Calcium 9.5 (8.4-10.6) mg/dL Total Bilirubin 0.3 (0.1-1.5) mg/dL AST 22 (12-35) U/L ALT 11 (4-35) U/L Alkaline Phosphatase 65 (40-150) U/L C-Reactive Protein < 0.5 L (0.5-1.0) mg/dL Total Protein 7.1 (6.0-8.3) g/dL Albumin 4.3 (3.3-5.0) g/dL Urine Color Yellow (Yellow) Urine Appearance Clear (Clear) Urine pH 7.0 (5.0-8.5) Ur Specific Aneta 1.015 (1.000-1.030) Urine Protein Negative (Negative) Urine Glucose (UA) Negative (Negative) Urine Ketones Negative (Negative) Urine Blood Negative (Negative) Urine Nitrite Positive A (Negative) Urine Bilirubin Negative (Negative) Urine Urobilinogen 0.2 (0.2-1.0) Ur Leukocyte Esterase Trace A (Negative) Urine RBC 0-2 (0-2) Urine WBC 2-5 (0-5) Ur Squamous Epith Cells Few (None-Few) Urine Bacteria Many A (None) Urine Starch Few A (None) POC Creatinine 0.6 (0.6-1.3) mg/dl Imaging Data Venous US: Attestation: I have reviewed the pertinent imaging results. Radiologist's impression: Sonographic imaging demonstrates the left common femoral, deep femoral, superficial femoral, popliteal, posterior tibial and greater saphenous and the contralateral right common femoral veins to be fully compressible with normal color Doppler blood flow. IMPRESSION: Normal left lower extremity venous ultrasound, no sign of deep venous thrombosis. Pelvis x-ray: Attestation: I have reviewed the pertinent imaging results. My impression: I do not note any acute fracture Radiologist's impression: Bones: Alignment is normal. Redemonstrated bilateral total hip arthroplasties. No evident hardware complications. No evident fractures or bone lesions. Soft tissues: Unremarkable. Impression: No evident acute abnormalities. Left hip and femur x-ray: Attestation: I have reviewed the pertinent imaging results. Radiologist's impression: [place] [address] Diagnostic Imaging Report Patient: Clarissa Dey MR#: [id number] : 1935 Acct:[id number] Loc: ED Service Date: 08/20/[address]: Ordering Physician: Tena Oquendo M.D. Date of Service: 08/20/24 Procedure(s): XR femur LT 2V Accession Number(s): [id number] cc: Severino Durham M.D.; Tena Oquendo M.D.~ For Patients: As a result of the Cures Act, medical imaging exams and procedure reports are released immediately into your electronic medical record. You may view this report before your referring provider. If you have questions, please contact your health care provider. 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 Hardware appears intact without evident complication. No evident acute fracture or dislocation. No evident acute soft tissue abnormality. Left knee x-ray: Attestation: I have reviewed the pertinent imaging results. CT scan - abdomen: Attestation: I have reviewed the pertinent imaging results. Radiologist's impression: FINDINGS: Lower chest: Unremarkable. Liver: Left hepatic lobe cystic focus. Innumerable other hepatic subcentimeter hypodensities are small to characterize but may also reflect cysts. Gallbladder and bile ducts: Cholelithiasis without evidence of acute cholecystitis. Pancreas: Unremarkable. No mass or inflammation. Spleen: Unremarkable. Normal in size. No masses. Adrenal glands: Unremarkable. No nodules. Kidneys: Unremarkable. No suspicious masses, stones, or hydronephrosis. GI tract: Mild colonic diverticulosis without evidence of acute diverticulitis. Normal appendix. Vasculature: Abdominal aorta is normal in caliber. Mesenteric arteries are patent. Lymph nodes: No lymphadenopathy. Peritoneum/Abdominal Wall: Unremarkable. No sign of mass or infiltration. No free air or significant free fluid. Pelvis: Evaluation of the pelvis is limited due to artifact from bilateral total hip arthroplasty hardware, but there are no evident acute abnormalities. Bones: Evaluation of the bilateral total hip arthroplasty hardware is limited due to hardware associated artifact, but there are no evident acute abnormalities. 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 At L1-2, there is a partially calcified disc herniation that results in at least mild spinal canal stenosis. IMPRESSION: No evident acute abnormalities in the abdomen, pelvis, or visualized proximal lower extremities. Specifically, there is no visualized hernia or aneurysm. Discharge Plan Discharge Clinical Impression: Left leg pain Patient Disposition: Home, Self-Care Condition: Unchanged Additional Instructions: Follow-up with your physical therapist tomorrow as scheduled. If your leg pain is getting worse, you are unable to bear weight, you start running a fever or have the onset of blister like rash on your leg please return to the emergency room for further evaluation. It was a pleasure to meet you today. Your urine had some bacteria and I will be sending that for a culture. We will call you if it grows out positive any you have a UTI. Your kidney function was normal. Your liver function tests were normal. Your CRP which is an inflammatory marker and white count were both normal. Your hemoglobin was normal as well. Prescriptions: No Action trazodone 50 mg tablet 50 mg PO HS Follow Up/Referrals: Severino Durham MD [Primary Care Provider] - Stand Alone Forms: [employer] Info Instructions
--- NOTE | 2024-08-20 14:46 | CRLHL7_ITS ---
For Patients: As a result of the Century Cures Act, medical imaging exams and procedure reports are released immediately into your electronic medical record. You may view this report before your referring provider. If you have questions, please contact your health care provider. Indication: Pain nontraumatic. Technique: Pelvis 1 view. Comparison: Pelvis radiographs dated 05/25/2023. Findings: Bones: Alignment is normal. Redemonstrated bilateral total hip arthroplasties. No evident hardware complications. No evident fractures or bone lesions. Soft tissues: Unremarkable. Impression: No evident acute abnormalities. Dictated by Uriel Potter MD @ 08/20/2024 4:17:46 PM (Electronically Signed)
--- NOTE | 2024-08-20 14:46 | CRLHL7_ITS ---
For Patients: As a result of the Cures Act, medical imaging exams and procedure reports are released immediately into your electronic medical record. You may view this report before your referring provider. If you have questions, please contact your health care provider. 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 Hardware appears intact without evident complication. No evident acute fracture or dislocation. No evident acute soft tissue abnormality. Dictated by Uriel Potter MD @ 08/20/2024 4:07:02 PM (Electronically Signed)
--- NOTE | 2024-08-20 14:46 | CRLHL7_ITS ---
For Patients: As a result of the Century Cures Act, medical imaging exams and procedure reports are released immediately into your electronic medical record. You may view this report before your referring provider. If you have questions, please contact your health care provider. INDICATION: Pain and fullness TECHNIQUE: Ultrasound venous duplex lower left extremity. Compression venous exam was performed using cano-scale, color Doppler, and spectral Doppler analysis. COMPARISON: None. FINDINGS: Sonographic imaging demonstrates the left common femoral, deep femoral, superficial femoral, popliteal, posterior tibial and greater saphenous and the contralateral right common femoral veins to be fully compressible with normal color Doppler blood flow. IMPRESSION: Normal left lower extremity venous ultrasound, no sign of deep venous thrombosis. Dictated by David Isabel MD @ 08/20/2024 3:27:51 PM (Electronically Signed)
[2024-08-20 15:49] VITALS: BP 148/72; PULSE 57; RESP 16; O2SAT 98
--- NOTE | 2024-08-20 16:34 | CRLHL7_ITS ---
For Patients: As a result of the Century Cures Act, medical imaging exams and procedure reports are released immediately into your electronic medical record. You may view this report before your referring provider. If you have questions, please contact your health care provider. INDICATION: LEFT LEG PAIN. POSSIBLE HERNIA OR ANEURYSM. TECHNIQUE: CT abdomen and pelvis acquired with 74 cc Isovue 370 IV contrast. COMPARISON: Earlier same day pelvis radiograph. FINDINGS: Lower chest: Unremarkable. Liver: Left hepatic lobe cystic focus. Innumerable other hepatic subcentimeter hypodensities are small to characterize but may also reflect cysts. Gallbladder and bile ducts: Cholelithiasis without evidence of acute cholecystitis. Pancreas: Unremarkable. No mass or inflammation. Spleen: Unremarkable. Normal in size. No masses. Adrenal glands: Unremarkable. No nodules. Kidneys: Unremarkable. No suspicious masses, stones, or hydronephrosis. GI tract: Mild colonic diverticulosis without evidence of acute diverticulitis. Normal appendix. Vasculature: Abdominal aorta is normal in caliber. Mesenteric arteries are patent. Lymph nodes: No lymphadenopathy. Peritoneum/Abdominal Wall: Unremarkable. No sign of mass or infiltration. No free air or significant free fluid. Pelvis: Evaluation of the pelvis is limited due to artifact from bilateral total hip arthroplasty hardware, but there are no evident acute abnormalities. Bones: Evaluation of the bilateral total hip arthroplasty hardware is limited due to hardware associated artifact, but there are no evident acute abnormalities. 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 At L1-2, there is a partially calcified disc herniation that results in at least mild spinal canal stenosis. IMPRESSION: No evident acute abnormalities in the abdomen, pelvis, or visualized proximal lower extremities. Specifically, there is no visualized hernia or aneurysm. Please note that all CT scans at this facility use dose modulation, iterative reconstruction, and/or weight-based dosing when appropriate to reduce radiation dose to as low as reasonably achievable. Dictated by Uriel Potter MD @ 08/20/2024 6:38:26 PM (Electronically Signed)
[2024-08-20 16:46] VITALS: PULSE 55; RESP 16; TEMP 36.6; O2SAT 97
[2024-08-20 16:48] LABS: Basophils Absolute Auto 0.04 K/uL (0.00-0.30); Basophils Percent Auto 0.5 % (0.0-3.0); Creatinine, Point-of-Care* 0.6 mg/dl (0.6-1.3); Eosinophils Absolute Auto 0.08 K/uL (0.00-0.50); Eosinophils Percent Auto 0.9 % (0.0-7.0); Hematocrit 37.1 % (33.0-51.0); Hemoglobin* 12.2 gm/dL (12.0-16.0); Immature Granulocytes Abs Auto 0.01 K/uL (0.00-0.30); Immature Granulocytes Pct Auto 0.1 %; Lymphocytes Absolute Auto 2.64 K/uL (0.90-2.90); Mean Corpuscular HGB Conc 33 gm/dL (32-36); Mean Corpuscular Hemoglobin 30 pg (26-34); Mean Corpuscular Volume 92 fL (80-100); Monocytes Percent Auto 7.2 % (0.0-11.0); Neutrophils Absolute Auto 5.14 K/uL (1.7-7.0); Neutrophils Percent Auto 60.3 % (42.0-72.0); Platelet Count* 300 K/uL (140-440); RDW Coefficient of Variation % 12.8 % (11.5-15.5); Red Blood Count 4.04 m/uL (4.00-5.20); White Blood Count* 8.52 K/uL (4.50-11.00)
[2024-08-20 16:51] LABS: Slide Review Reflex No
[2024-08-20 17:01] LABS: Albumin* 4.3 g/dL (3.3-5.0); Chloride* 103 mmol/L (96-114); Potassium* 3.9 mmol/L (3.6-5.1); Sodium* 137 mmol/L (135-149)
[2024-08-20 17:03] LABS: Bilirubin Total* 0.3 mg/dL (0.1-1.5); Creatinine* 0.6 mg/dL (0.5-1.5); Est. Creatinine Clearance* 29.91; Estimated Glomerular Filt Rate 87 ml/min
[2024-08-20 17:04] LABS: Alanine Aminotransferase* 11 U/L (4-35); Alkaline Phosphatase* 65 U/L (40-150); Anion Gap 6 mEq/L (7-15); Aspartate Amino Transferase* 22 U/L (12-35); Blood Urea Nitrogen* 19 mg/dL (7-30); Carbon Dioxide* 28 mmol/L (20-32); Glucose* 89 mg/dL (60-115); Total Protein* 7.1 g/dL (6.0-8.3)
[2024-08-20 17:05] LABS: Calcium* 9.5 mg/dL (8.4-10.6)
[2024-08-20 17:16] LABS: C Reactive Protein* < 0.5 mg/dL (0.5-1.0)
[2024-08-20 17:52] LABS: Appearance Urine Clear (Clear); Bilirubin Urine Negative (Negative); Blood Urine Negative (Negative); Color Urine Yellow (Yellow); Glucose Urine Negative (Negative); Ketones Urine Negative (Negative); Leukocyte Esterase Urine Trace (Negative); Nitrite Urine Positive (Negative); Protein Urine Negative (Negative); RBC Urine 0-2 (0-2); Specific Gravity Urine 1.015 (1.000-1.030); Squamous Epithelial Cell Urine Few (None-Few); Urobilinogen Urine 0.2 (0.2-1.0)
[2024-08-20 17:53] LABS: Bacteria Urine Many; Starch Urine Few
[2024-08-20 18:45] VITALS: BP 140/82; PULSE 55; RESP 16; O2SAT 97
== END 2024-08-20 19:21 | disposition home or self-care (01) ==
PROVIDERS: Emergency Provider Family Medicine; PCP Family Medicine
DX: M79.605 Pain in left leg (principal)
CPT/HCPCS: 36415; 72170; 73552; 74177; 80053; 81001; 82565; 85025; 86140; 87086; 87186; 93971; 99284; 99285; Q9967